=== PATIENT | male | born 1960 | race Caucasian/White ===

== ENCOUNTER → 2016-09-04 | Outpatient (CLI) | payer BC | END | disposition home or self-care (01) | LOC: GMAB 10:29 | PROVIDERS: ATTEND Family Medicine | DX: Z00.01 Encounter for general adult medical examination with abnormal findings (principal) ==

== ENCOUNTER → 2016-12-06 | Outpatient (CLI) | payer BC | END | disposition home or self-care (01) | LOC: GMAB 16:29 | PROVIDERS: ATTEND Family Medicine | DX: E03.9 Hypothyroidism, unspecified (principal) ==

== ENCOUNTER → 2018-01-24 | Outpatient (CLI) | payer OTHER | LOC: GMAE 10:37 | PROVIDERS: ATTEND Family Medicine | DX: Z00.01 Encounter for general adult medical examination with abnormal findings (principal) ==

== ENCOUNTER → 2019-02-25 | Outpatient (CLI) | payer OTHER | LOC: GMAE 11:37 | PROVIDERS: ATTEND Family Medicine | DX: Z00.00 Encounter for general adult medical examination without abnormal findings (principal) ==

== ENCOUNTER → 2019-06-11 | Outpatient (CLI) | payer OTHER | LOC: GMAE 10:26 | PROVIDERS: ATTEND Family Medicine | DX: E03.9 Hypothyroidism, unspecified (principal); E78.2 Mixed hyperlipidemia ==

== ENCOUNTER → 2020-03-10 | Outpatient (CLI) | payer OTHER, SELFPAY ==
--- NOTE | 2020-03-11 14:38 | MRI ---
EXAM DESCRIPTION: Lumbar Spine w/o Contrast : Magnetic Resonance Imaging. CLINICAL HISTORY: RADICULOPATHY COMPARISON: None. TECHNIQUE: Multiplanar, multiple standard sequences, non contrast MRI, lumbar spine. FINDINGS: L5-S1: The disc is well visualized on axial T2 series 501, image 3. Normal signal in the disc with disc space preserved. Minimal hypertrophy of the facet joints and posterior flavum ligaments (canal elements). Minimal canal narrowing. Bilateral moderate foraminal narrowing more on the left. L4-L5: Minimal disc desiccation with disc space preserved. Trace anterolisthesis. Bilateral disc bulge into the lateral soft tissues and minimal endplate reactive changes on the right with disc spur complex narrowing the right foramen. Mild narrowing of the foramen bilaterally more on the right. Mild to moderate hypertrophic changes in the canal elements. AP canal diameter 9.5 mm. L3-L4: Disc desiccation and posterior midline bulge as well as bulge into the left foramen with hyperintense T2 annular fissure in the bulging/protruding segment. This is encroaching on the foramen and the left L3 nerve. Moderate to severe narrowing of the right foramen. Disc also effacing the left subarticular recess and posterior displacing the left L4 nerve. Left paracentral AP canal diameter 7.5 mm. Tortuosity of the course of the nerve roots begins at the L3 vertebral body extending to the level of the L4 vertebral body but no definite mass. Hyperintense T1 and T2 circumscribed hemangioma left superior L3 vertebral body. L2-L3: Disc desiccation and disc space loss with anterior bulging. Posterior broad-based disc bulge containing hyperintense T2 annular fissure in the posterior margin in the midline, and in the left foramen. Hypertrophic changes in the canal elements. AP canal diameter 7 mm. Mild left foraminal narrowing and mild to moderate right foraminal narrowing. L1-L2: Disc desiccation and minimal disc space loss. Anterior bulging and spurs. Focal posterior midline bulge. Minimal hypertrophic changes in the canal elements. AP canal diameter 10 mm. Bilateral foramina are patent. T12-L1: Disc desiccation and anterior endplate reactive changes moderate. Bulging disc and spurs. Posterior broad-based disc bulge with spurs abutting the thecal sac more to the left of midline. Minimal hypertrophy of the canal elements. Mild canal narrowing. Bilateral foramina are patent. Conus terminates at this level. No significant scoliosis. Paravertebral soft tissues bilateral paraspinal muscle atrophy. Aortic ectasia.. Distal cord normal signal and caliber. Normal marrow signal in the remaining vertebral bodies and the posterior elements. Vertebral bodies are not compressed at any level. IMPRESSION: 1. Multiple levels of disc desiccation, spondylosis, disc bulging, and hypertrophic changes in the flavum ligaments and facet joints. 2. Spondylosis on the right at L4-L5 with disc spur complex narrowing the right foramen. Borderline mild central canal stenosis. 3. L3-4 disc bulging into the left foramen with annular fissure. Possible compromise left L3 nerve. Effacement of the left subarticular recess and displacement of the left L4 nerve. Moderate central canal stenosis. 4. Question of tortuous nerve roots without soft tissue mass could represent prior arachnoiditis. 5. Please refer to FINDINGS for discussion of results at other disc space levels. Aortic ectasia: [facility] Best Practice guidelines: Mild aortic dilatation, not meeting criteria for aneurysm. No follow-up imaging is recommended. Reference: J Am Lety Radiol 2013;10:789-794. Electronically signed by: Eric Catalan MD 03/11/2020 2:37 PM [facility] [[email or web address]]
== END ==
LOC: RAD 08:30
PROVIDERS: ATTEND Family Medicine Sports Medicine
DX: M51.16 Intervertebral disc disorders with radiculopathy, lumbar region (principal); M47.26 Other spondylosis with radiculopathy, lumbar region; M48.061 Spinal stenosis, lumbar region without neurogenic claudication; M46.96 Unspecified inflammatory spondylopathy, lumbar region; M24.28 Disorder of ligament, vertebrae; M25.78 Osteophyte, vertebrae; I77.819 Aortic ectasia, unspecified site

== ENCOUNTER → 2020-03-12 | Outpatient (CLI) | payer OTHER | LOC: GMAE 13:25 | PROVIDERS: ATTEND Family Medicine | DX: Z00.00 Encounter for general adult medical examination without abnormal findings (principal) ==

== ENCOUNTER 2020-03-29 07:16 | Day surgery (SDC) | payer OTHER ==
[~2020-03-29 07:16] MED LIST: BUPIVACAINE 0.5% 30 ML VIAL INJ ONE; DEXAMETHASONE INJ 10 MG/ML VIAL ONE; LIDOCAINE 1% 10 ML VIAL INJ ONE
[2020-03-29] MEDS ORDERED: LIDOCAINE 1% 10 ML VIAL INJ ONE ×2 (10:29→11:00)
[2020-03-29] MEDS ORDERED: DEXAMETHASONE INJ 10 MG/ML VIAL IV ONE ×2 (10:30→11:00)
[2020-03-29] MEDS ORDERED: BUPIVACAINE 0.5% 30 ML VIAL INJ ONE ×2 (10:30→11:00)
[2020-03-29] MEDS ORDERED: DEXAMETHASONE INJ 10 MG/ML VIAL ONE (11:03)
== END 2020-03-29 11:40 | disposition home or self-care (01) ==
LOC: AMB 07:16
PROVIDERS: ATTEND Family Medicine Sports Medicine
DX: M54.5 Low back pain (principal); M54.16 Radiculopathy, lumbar region; E78.5 Hyperlipidemia, unspecified; I10 Essential (primary) hypertension; M10.9 Gout, unspecified; E11.9 Type 2 diabetes mellitus without complications; E03.9 Hypothyroidism, unspecified; F17.220 Nicotine dependence, chewing tobacco, uncomplicated; Z79.84 Long term (current) use of oral hypoglycemic drugs; Z79.82 Long term (current) use of aspirin; Z79.899 Other long term (current) drug therapy
CPT/HCPCS: 64483; 64484; J1100